=== PATIENT | female | born 1965 | race Caucasian/White ===

== ENCOUNTER 2017-10-09 08:42 | Emergency (ER) | payer MEDICAID ==
[2017-10-09] MEDS ORDERED: ASPIRIN 81 MG CHEWABLE TAB PO ONE (08:58)
--- NOTE | 2017-10-09 08:58 | CPEKG ---
Heart Rate: 72 RR Interval: 833 P-R Interval: 152 QRSD Interval: 96 QT Interval: 380 QTC Interval: 416 P [place]: 48 QRS [place]: 40 T Wave [place]: 50 EKG Severity - NORMAL ECG - EKG Impression: SINUS RHYTHM Electronically Signed By: David Reza 09-Oct-2017 08:59:44
--- NOTE | 2017-10-09 08:59 | EDPHY ---
H & P Stated Complaint: zayda CP starting last night approx 1800 Time Seen by Provider: 10/09/17 08:56 HPI/ROS: CHIEF COMPLAINT: Left-sided pleuritic chest pain HISTORY OF PRESENT ILLNESS: The patient presents to the ED with a 1 day history of left anterior pleuritic chest pain. The patient reports pain along the costochondral junction of her sternum and ribs. She denies any history of fall or trauma. She denies fever, cough or congestion. She denies asymmetric calf pain or swelling. She denies prior history of PE or DVT. The patient does smoke. There is no family history of blood clots. The patient denies any additional complaints of abdominal pain, nausea, vomiting or prolonged immobilization. REVIEW OF SYSTEMS: A comprehensive 10 point review of systems is otherwise negative aside from elements mentioned in the history of present illness. Source: Patient Exam Limitations: No limitations - Personal History Current Tetanus/Diphtheria Vaccine: No Current Tetanus Diphtheria and Acellular Pertussis (TDAP): No - Medical/Surgical History Hx Asthma: No Hx Chronic Respiratory Disease: No Hx Diabetes: No Hx Cardiac Disease: No Hx Renal Disease: No Hx Cirrhosis: No Hx Alcoholism: No Hx HIV/AIDS: No Hx Splenectomy or Spleen Trauma: No Other PMH: none reported - Social History Smoking Status: Current every day smoker - Physical Exam Exam: General Appearance: Alert, no distress Eyes: Pupils equal and round no pallor or injection ENT, Mouth: Mucous membranes moist Respiratory: There are no retractions, lungs are clear to auscultation Cardiovascular: Regular rate and rhythm Gastrointestinal: Abdomen is soft and nontender, no masses, bowel sounds normal Neurological: A&O, normal motor function, normal sensory exam, normal cranial nerves Skin: Warm and dry, no rashes Musculoskeletal: Neck is supple nontender Extremities: symmetrical, full range of motion Constitutional: Initial Vital Signs Temperature (C) 37.1 C 10/09/17 08:46 Heart Rate 86 10/09/17 08:46 Respiratory Rate 18 10/09/17 08:46 Blood Pressure 121/96 H 10/09/17 08:46 O2 Sat (%) 94 10/09/17 08:46 O2 Delivery Mode Nasal Cannula Allergies/Adverse Reactions: No Known Allergies Allergy (Unverified 10/09/17 08:46) Home Medications: Medication Instructions Recorded NK [No Known Home Meds] 10/09/17 Medical Decision Making - Diagnostics EKG Interpretation: EKG: Complete interpretation has been separately recorded in the [email or web address] archive. Summary impression: Sinus rhythm, rate 72 Imaging Results: Imaging Impressions Chest X-Ray 10/09/17 09:11 Impression: Mild hyperexpansion, which can be seen with airways disease or COPD. ED Course/Re-evaluation: The patient presents to the emergency department with complaints of sharp pleuritic left-sided chest pain. The patient is noted to have stable vital signs in the emergency department. Her EKG demonstrates no evidence of ischemia. The patient's troponin is normal. Given the pleuritic nature of her chest pain and smoking status a D-dimer was checked to evaluate for possible pulmonary embolism. This was negative and I feel adequately excludes PE as the patient is low risk by Wells criteria. The patient did received Toradol in the emergency department. She has no evidence of significant metabolic abnormality or anemia. At this point time I feel the patient's chest pain is musculoskeletal in nature. She can take ibuprofen as needed for management of her symptoms. She should return to the ED for markedly worsening symptoms or other concerns. Differential Diagnosis: Differential diagnosis considered includes costochondritis, pleurisy, pulmonary embolism, acute coronary syndrome, pneumothorax - Data Points Laboratory Results: Laboratory Results 10/09/17 08:55 10/09/17 08:55 10/09/17 10/09/17 10/09/17 08:55 08:55 08:55 WBC 6.09 10^3/uL 10^3/uL (3.80-9.50) RBC 4.93 10^6/uL 10^6/uL (4.18-5.33) Hgb 15.2 g/dL g/dL (12.6-16.3) Hct 44.6 % % (38.0-47.0) MCV 90.5 fL fL (81.5-99.8) MCH 30.8 pg pg (27.9-34.1) MCHC 34.1 g/dL g/dL (32.4-36.7) RDW 12.5 % % (11.5-15.2) Plt Count 203 10^3/uL 10^3/uL (150-400) MPV 9.6 fL fL (8.7-11.7) Neut % (Auto) 66.4 % % (39.3-74.2) Lymph % (Auto) 25.1 % % (15.0-45.0) [place] % (Auto) 7.2 % % (4.5-13.0) Eos % (Auto) 0.8 % % (0.6-7.6) Baso % (Auto) 0.3 % % (0.3-1.7) Nucleat RBC Rel Count 0.0 % % (0.0-0.2) Absolute Neuts (auto) 4.04 10^3/uL 10^3/uL (1.70-6.50) Absolute Lymphs (auto) 1.53 10^3/uL 10^3/uL (1.00-3.00) Absolute Monos (auto) 0.44 10^3/uL 10^3/uL (0.30-0.80) Absolute Eos (auto) 0.05 10^3/uL 10^3/uL (0.03-0.40) Absolute Basos (auto) 0.02 10^3/uL 10^3/uL (0.02-0.10) Absolute Nucleated RBC 0.00 10^3/uL 10^3/uL (0-0.01) Immature Gran % 0.2 % % (0.0-1.1) Immature Gran # 0.01 10^3/uL 10^3/uL (0.00-0.10) D-Dimer < 0.27 ug/mLFEU ug/mLFEU (0.00-0.50) Sodium 143 mEq/L mEq/L (135-145) Potassium 4.3 mEq/L mEq/L (3.5-5.2) Chloride 106 mEq/L mEq/L (97-110) Carbon Dioxide 24 mEq/l mEq/l (22-31) Anion Gap 13 mEq/L mEq/L (8-16) BUN 11 mg/dL mg/dL (7-23) Creatinine 0.7 mg/dL mg/dL (0.6-1.0) Estimated GFR > 60 Glucose 103 mg/dL H mg/dL (70-100) Calcium 10.3 mg/dL mg/dL (8.5-10.4) Troponin I < 0.012 ng/mL ng/mL (0.000-0.034) Medications Given: Discontinued Medications Aspirin (Aspirin) 324 mg PO EDNOW ONE Stop: 10/09/17 08:59 Last Admin: 10/09/17 09:03 Dose: 324 mg Departure - Departure Disposition: Home, Routine, Self-Care Clinical Impression: Chest pain Condition: Good Instructions: Chest Pain (ED) Additional Instructions: 1. Take Ibuprofen or Motrin 600 mg by mouth three times a day. 2. Please return to the ED for markedly worsening symptoms or other concerns. 3. Please schedule a follow-up appointment with primary care. You have been given the contact number of our on-call primary care provider Dr. Linton. Referrals: Jason Linton MD [[facility] Primary Care Provider] - As per Instructions
[2017-10-09 09:25] LABS: PLATELET COUNT 203 10^3/uL (150-400)
[2017-10-09] MEDS ORDERED: KETOROLAC 30 MG/1 ML SDV IVP ONE (10:01)
[2017-10-09 10:16] VITALS: TEMP 98.4; O2SAT 97
[2017-10-09 10:33] VITALS: BP 128/96; PULSE 78; RESP 18
== END 2017-10-09 10:35 | disposition home or self-care (01) ==
DX: R07.9 Chest pain, unspecified (principal); F17.200 Nicotine dependence, unspecified, uncomplicated
CPT/HCPCS: 96374; J1885

== ENCOUNTER → 2017-12-29 | Outpatient (CLI) | payer MEDICAID | LOC: CIMAGING 13:24 | DX: N63.14 Unspecified lump in the right breast, lower inner quadrant (principal) | CPT/HCPCS: 76641-PO ==